=== PATIENT | female | born 1975 | race Caucasian/White ===

== ENCOUNTER 2017-04-02 14:29 | Emergency (ER) | payer OTHER ==
[2017-04-02] MEDS ORDERED: VALIUM 10 MG/2 ML SYRINGE IV ONE ×2 (14:45→15:17)
[2017-04-02] MEDS ORDERED: Sodium Chloride 0.9% 1000 ML 1,000 ML IV SCH (14:45)
[2017-04-02 14:47] VITALS: O2SAT 100
[2017-04-02] MEDS ORDERED: Sodium Chloride 0.9% 1000 ML 1,000 ML ONE (14:49)
[2017-04-02] MEDS ORDERED: VALIUM 10 MG/2 ML SYRINGE ONE ×2 (14:49→15:21)
[2017-04-02 14:54] LABS: BASOPHIL % 0.3 % (0.0-0.4); Eosinophil % 2.3 % (0.00-5.0); Granulocytes % 60.6 % (36.0-66.0); Lymphocytes % 30.6 % (24.0-44.0); Mean Cell Volume 80.3 fl (78-100); Mean Corpuscular Hemoglobin 26.4 pg (26-32); Mean Platelet Volume 9.4 fl (6-9.5); Monocytes % 6.2 % (0.0-12.0); Platelet Count 424 K/mm3 (150-450); Red Blood Count 5.37 M/mm3 (4.1-5.4); Red Cell Distribution Width 15.4 % (11.5-14.0)
--- NOTE | 2017-04-02 14:58 | ERPHSYRPT ---
- History of Present Illness Time Seen by Provider: 04/02/17 14:39 Source: patient Patient Subjective Stated Complaint: pt states she has been seen by Dr Barton this week for dizziness and given a scolpalamine patch. pt states today she became Sob with feeling of "fluttering in chest." Triage Nursing Assessment: pt pink, warm, dry. pt able to transfer to ER bed without difficulty an dwalk to bathroom. pt hyperventilating. lung sounds clear and equal. Physician History: CC: short of breath Hx: 41 y/o patient of Dr Barton. 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 She has been dizzy this week. Some spinning, some light headed. She had nausea, worse with turning her head. This started early in the week. She tried zofran and scopalamine. It seemed to make her have trouble focusing eyes and dry so stopped patch (r). Today she feels short of breath, flutery in her chest, some pain to left arm. Took NTG form her father with maybe some relief. She feels some anxiety as well. Soon to start menses. ILL: HTN, Hypothyroidism. Also polyarthritis with + connective tissue assays. ALL: Bactrim Social: Nonsmoker Severity: moderate Allergies/Adverse Reactions: sulfamethoxazole [From Bactrim] Allergy (Intermediate, Verified 04/02/17 14:47) Rash trimethoprim [From Bactrim] Allergy (Intermediate, Verified 04/02/17 14:47) Rash levofloxacin [From Levaquin] Adverse Reaction (Verified 04/02/17 14:47) Headache severe headache Home Medications: Ergocalciferol (Vitamin D2) [Vitamin D2] 5,000 units PO WEEKLY 06/22/16 [History ] Pantoprazole 40 mg [Protonix 40 mg IV] 1 cap PO DAILY 06/22/16 [History] Tramadol HCl 50 mg [Ultram 50 mg] 50 mg PO UD PRN 07/23/16 [History] Levothyroxine Sodium 88 Mcg [Synthroid 88 Mcg] 88 mcg PO DAILY 04/02/17 [ History] Losartan/Hydrochlorothiazide [Losartan-Hctz 100-12.5 mg Tab] 1 each PO DAILY [History] Paroxetine HCl [Paxil] 0 mg PO DAILY 04/02/17 [History] Hx Tetanus, Diphtheria Vaccination/Date Given: Yes (up to date) Hx Influenza Vaccination/Date Given: Yes Hx Pneumococcal Vaccination/Date Given: No Immunizations Up to Date: Yes - Review of Systems Constitutional: No Fever, No Chills Eyes: Vision Changes Ears, Nose, & Throat: No Symptoms Respiratory: Dyspnea, No Cough Cardiac: Chest Pain Abdominal/Gastrointestinal: No Abdominal Pain, No Nausea, No Vomiting Genitourinary Symptoms: No Symptoms Musculoskeletal: No Back Pain, No Neck Pain Skin: No Rash Neurological: Dizziness, No Focal Weakness, No Headache, No Parasthesia All Other Systems: Reviewed and Negative - Past Medical History Pertinent Past Medical History: Yes Neurological History: No Pertinent History ENT History: No Pertinent History Cardiac History: Hypertension Respiratory History: No Pertinent History Endocrine Medical History: Hypothyroidism Musculoskeletal History: No Pertinent History GI Medical History: GERD History: No Pertinent History Psycho-Social History: Depression Female Reproductive Disorders: No Pertinent History - Past Surgical History Past Surgical History: Yes Neuro Surgical History: No Pertinent History Cardiac: No Pertinent History Respiratory: No Pertinent History Gastrointestinal: Cholecystectomy Genitourinary: No Pertinent History Musculoskeletal: Orthopedic Surgery Female Surgical History: No Pertinent History Other Surgical History: wrist left,bone graft after nerves had rubbed thru, - Social History Smoking Status: Former smoker Exposure to second hand smoke: No Drug Use: none Patient Lives Alone: No - Female History Hx Last Menstrual Period: end february 2017 - Nursing Vital Signs Nursing Vital Signs: Initial Vital Signs Temperature 98 F Temperature Source Oral Pulse Rate 85 Respiratory Rate 20 Blood Pressure [] 139/85 Pain Intensity 0 - Physical Exam General Appearance: alert Eye Exam: other (no nystagmus; right pupil larger than left) Ears, Nose, Throat Exam: moist mucous membranes Neck Exam: normal inspection, non-tender, supple Respiratory Exam: normal breath sounds, lungs clear Cardiovascular Exam: regular rate/rhythm, No murmur Gastrointestinal/Abdomen Exam: soft, No tenderness, No distention Extremity Exam: normal inspection, normal range of motion Neurologic Exam: alert, oriented x 3, cooperative, 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, nml cerebellar function (normal Heel to mccord), sensation nml, No motor deficits Skin Exam: warm, dry, No rash SpO2 Interpretation: normal SpO2: 100 Oxygen Delivery: Room Air - Course Nursing assessment & vital signs reviewed: Yes EKG Interpreted by Me: RATE (85), Sinus Rhythm, NORMAL AXIS, NORMAL INTERVALS ( QTc 440), NORMAL QRS, NORMAL ST-T - Radiology Exams cxr X-ray Interpretation: Teleradiologist Report, Negative Ordered Tests: Active Orders 24 hr Category Date Time Status EKG-ER Only STAT Care 04/02/17 14:45 Active IV Insertion STAT Care 04/02/17 14:45 Active Orthostatic Vital Signs STAT Care 04/02/17 14:33 Active CHEST 1 VIEW (PORTABLE) Stat Exams 04/02/17 14:45 Completed MRI BRAIN W/O CONTRAST [MRI] Stat Exams 04/02/17 14:50 Completed CBC W DIFF Stat Lab 04/02/17 14:51 Completed CMP Stat Lab 04/02/17 14:51 Completed D-DIMER QUANTITATION Stat Lab 04/02/17 14:51 Completed HCG QUALITATIVE,SERUM Stat Lab 04/02/17 14:51 Completed NT PRO BNP Routine Lab 04/02/17 14:51 Completed TROPONIN Q3H Lab 04/02/17 14:51 Completed TROPONIN Q3H Lab 04/02/17 18:00 Ordered TROPONIN Q3H Lab 04/02/17 21:00 Ordered TROPONIN Q3H Lab 04/03/17 00:00 Ordered TROPONIN Q3H Lab 04/03/17 03:00 Ordered Medication Summary Generic Name Dose Route Start Last Admin Trade Name Freq PRN Reason Stop Dose Admin Sodium Chloride 1,000 mls @ 100 mls/hr 04/02/17 14:45 04/02/17 14:50 Sodium Chloride 0.9% 1000 Ml IV 05/02/17 14:44 100 mls/hr .Q10H MAURICIO Administration Discontinued Medications Generic Name Dose Route Start Last Admin Trade Name Freq PRN Reason Stop Dose Admin Aspirin 162 mg 04/02/17 16:26 04/02/17 16:32 Baby Aspirin 81 Mg Chew PO 04/02/17 16:27 162 mg STAT ONE Administration Aspirin Confirm 04/02/17 16:29 Baby Aspirin 81 Mg Chew Administered 04/02/17 16:30 Dose 162 mg .ROUTE .STK-MED ONE Diazepam 5 mg 04/02/17 14:45 04/02/17 14:51 Valium 10 Mg/2 Ml Syringe IV 04/02/17 14:46 5 mg STAT ONE Administration Diazepam Confirm 04/02/17 14:49 Valium 10 Mg/2 Ml Syringe Administered 04/02/17 14:50 Dose 10 mg .ROUTE .STK-MED ONE Diazepam 10 mg 04/02/17 15:17 04/02/17 15:24 Valium 10 Mg/2 Ml Syringe IV 04/02/17 15:18 10 mg STAT ONE Administration Diazepam Confirm 04/02/17 15:21 Valium 10 Mg/2 Ml Syringe Administered 04/02/17 15:22 Dose 10 mg .ROUTE .STK-MED ONE Meclizine HCl 25 mg 04/02/17 16:29 04/02/17 16:32 Antivert 25 Mg PO 04/02/17 16:30 25 mg STAT ONE Administration Meclizine HCl Confirm 04/02/17 16:31 Antivert 25 Mg Administered 04/02/17 16:32 Dose 25 mg .ROUTE .STK-MED ONE Lab/Rad Data: Laboratory Result Diagrams 04/02/17 14:51 04/02/17 14:51 Laboratory Results 04/02/17 04/02/17 04/02/17 Range/Units 14:51 14:51 14:51 WBC (4.0-10.5) K/mm3 RBC (4.1-5.4) M/mm3 Hgb (12.0-16.0) gm/dl Hct (35-47) % MCV (78-100) fl MCH (26-32) pg MCHC (32-36) g/dl RDW (11.5-14.0) % Plt Count (150-450) K/mm3 MPV (6-9.5) fl Gran % (36.0-66.0) % Lymphocytes % (24.0-44.0) % Monocytes % (0.0-12.0) % Eosinophils % (0.00-5.0) % Basophils % (0.0-0.4) % Basophils # (0-0.4) D-Dimer 226 (0-500) ng/mL Sodium (136-145) mEq/L Potassium (3.5-5.1) mEq/L Chloride (98-107) mEq/L Carbon Dioxide (21-32) mEq/L Anion Gap (5-15) MEQ/L BUN (9-20) mg/dL Creatinine (0.55-1.30) mg/dl Estimated GFR ML/MIN Glucose (70-110) MG/DL Calcium (8.5-10.1) mg/dL Total Bilirubin (0.2-1.0) mg/dL AST (15-37) U/L ALT (12-78) U/L Alkaline Phosphatase (46-116) U/L Troponin I < 0.017 (0.000-0.056) ng/ml NT-Pro-B Natriuret Pep 26 (0-125) pg/ml Serum Total Protein (6.4-8.2) gm/dL Albumin (3.4-5.0) g/dL Serum , Qual NEGATIVE (Negative) 04/02/17 04/02/17 Range/Units 14:51 14:51 WBC 12.0 H (4.0-10.5) K/mm3 RBC 5.37 (4.1-5.4) M/mm3 Hgb 14.2 (12.0-16.0) gm/dl Hct 43.1 (35-47) % MCV 80.3 (78-100) fl MCH 26.4 (26-32) pg MCHC 32.9 (32-36) g/dl RDW 15.4 H (11.5-14.0) % Plt Count 424 (150-450) K/mm3 MPV 9.4 (6-9.5) fl Gran % 60.6 (36.0-66.0) % Lymphocytes % 30.6 (24.0-44.0) % Monocytes % 6.2 (0.0-12.0) % Eosinophils % 2.3 (0.00-5.0) % Basophils % 0.3 (0.0-0.4) % Basophils # 0.04 (0-0.4) D-Dimer (0-500) ng/mL Sodium 138 (136-145) mEq/L Potassium 3.2 L (3.5-5.1) mEq/L Chloride 100 (98-107) mEq/L Carbon Dioxide 25.4 (21-32) mEq/L Anion Gap 15.7 H (5-15) MEQ/L BUN 10 (9-20) mg/dL Creatinine 0.94 (0.55-1.30) mg/dl Estimated GFR > 60 ML/MIN Glucose 124 H (70-110) MG/DL Calcium 9.8 (8.5-10.1) mg/dL Total Bilirubin 0.50 (0.2-1.0) mg/dL AST 13 L (15-37) U/L ALT 8 L (12-78) U/L Alkaline Phosphatase 95 (46-116) U/L Troponin I (0.000-0.056) ng/ml NT-Pro-B Natriuret Pep (0-125) pg/ml Serum Total Protein 8.0 (6.4-8.2) gm/dL Albumin 3.9 (3.4-5.0) g/dL Serum , Qual (Negative) - Progress Progress Note: 04/02/17 14:[address] Barton who requested MRI brain if possible. 04/02/17 16:26 MRI brain negative per Dr Hurtado. 04/02/17 16:45 Pt ambulated to . Called Dr Barton who advised try antivert at home. Labs reassuring. Family inquired about lyme. She had a a tick bite but had negative testing 2 weeks ago. Advised to discuss repeat testing with Dr Barton. Will release with instructions. She had a "fluttering in chest" but no predominant chest pain. Discussed with : Oralia Will see patient in: office Counseled pt/family regarding: lab results, diagnosis, need for follow-up, rad results - Departure Time of Disposition: 16:46 Departure Disposition: Home Clinical Impression: Dizziness, Shortness of breath Condition: Fair Critical Care Time: No Referrals: HIMANSHU BARTON [Primary Care Provider] - Instructions: Vertigo, Shortness of Breath Additional Instructions: Rx antivert for dizziness- no driving and stay with family. Notify Dr Barton tomorrow of condition or of any changes. Return for problems or concerns. Follow up Wednesday with Dr Barton. Prescriptions: Meclizine HCl 25 mg [Antivert 25 mg] 1 tab PO Q6H PRN PRN #20 tablet PRN Reason: dizziness
[2017-04-02 15:10] LABS: ALBUMIN 3.9 g/dL (3.4-5.0); ALKALINE PHOSPHATASE 95 U/L (46-116); ANION GAP 15.7 MEQ/L (5-15); BLOOD UREA NITROGEN 10 mg/dL (9-20); CHLORIDE 100 mEq/L (98-107); Carbon Dioxide 25.4 mEq/L (21-32); Glucose 124 MG/DL (70-110); Potassium 3.2 mEq/L (3.5-5.1); SGOT/AST 13 U/L (15-37); SGPT/ALT 8 U/L (12-78); SODIUM 138 mEq/L (136-145)
--- NOTE | 2017-04-02 15:15 | XRAY ---
Indication: Short of breath. General weakness. Palpitations. Comparison: May 07, 2015. Portable chest again demonstrates normal heart and lungs. Bony thorax intact with again minimal scoliosis.
[2017-04-02] MEDS ORDERED: BABY ASPIRIN 81 MG CHEW PO ONE (16:26)
--- NOTE | 2017-04-02 16:27 | XRAY ---
Indication: Dizziness, headache, and blurred vision for 3 days. Sagittal, coronal, and axial MRI brain was performed without contrast using T1, T2, FLAIR, diffusion, and ADC sequences. Comparison: None Ventriculosulcal pattern appears symmetric. No acute intracranial hemorrhage, abnormal extra-axial fluid collection, or mass effect. Diffusion images are negative for restricted signal. Fourth ventricle is midline without hydrocephalus. 7/8 cranial nerve complex bilaterally symmetric. Normal flow void signal within the major intracerebral circulation. Normal-appearing craniocervical junction and sella turcica. Paranasal sinuses are clear. Impression: Negative MRI brain without contrast exam.
[2017-04-02] MEDS ORDERED: ANTIVERT 25 MG PO ONE (16:29)
[2017-04-02] MEDS ORDERED: BABY ASPIRIN 81 MG CHEW ONE (16:29)
[2017-04-02] MEDS ORDERED: ANTIVERT 25 MG ONE (16:31)
[2017-04-02 16:38] LABS: TROPONIN < 0.017 ng/ml (0.000-0.056)
[2017-04-02 17:07] VITALS: BP 129/70; PULSE 67
== END 2017-04-02 17:07 | disposition home or self-care (01) ==
LOC: ED 14:29
DX: R42 Dizziness and giddiness (principal); R06.02 Shortness of breath; R11.10 Vomiting, unspecified; M79.602 Pain in left arm; I10 Essential (primary) hypertension; E03.9 Hypothyroidism, unspecified; Z79.899 Other long term (current) drug therapy
CPT/HCPCS: 36000; 36415; 70551; 71010; 80053; 83880; 84484; 84703; 85025; 85379; 93005; 96360; 96361; 96374; 99284; J3360; A9270-GY